=== PATIENT | male | born 1950 ===

== ENCOUNTER 2017-01-20 10:40 | Emergency (ER) | payer MEDICARE, OTHER ==
[~2017-01-20] VITALS: Ht 177.8 cm; Wt 90.9 kg
[2017-01-20 10:45] VITALS: BP 144/78; PULSE 50; RESP 18; O2SAT 98
--- NOTE | 2017-01-20 11:05 | ED.REPORT ---
HPI-Neurologic Deficit Date of Service Jan 20, 2017 ED Provider: Dangelo Matute MD The patient is a 66 year old male with history of hypertension, who presents to the emergency department complaining of episodes of vision changes that have been occurring occasionally over the last 9 months. He describes the episodes as "tunnel vision, like a kaleidoscope, and blurry." The left eye is more severe than the right. The episodes last at least 20 minutes at a time and spontaneously resolve. He does not have any other symptoms with these episodes. He was seen at the [facility] and sent to an eye doctor. He had an eye examination and was prescribed reading glasses. He has been wearing the glasses to read but is still having these episodes from time to time. He reports that he was told his eyes were "fine". He also reports a rash to his left chest that wraps around to the left side of his back. The rash is painful. He denies headache, unilateral weakness, slurred speech, confusion, chest pain, shortness of breath or abdominal pain. Upon further questioning it is apparent that the patient came here primarily for his rash and his eye issue is being worked up as an outpatient. He is a somewhat vague historian and is initially difficult to determine exactly why he came to the emergency room. Nursing Notes Stated Complaint: POSS TIA Chief Complaint: Neuro Symptoms/ Deficits Nursing Notes Reviewed: Yes Allergies: Coded Allergies: No Known Allergies (Unverified , 01/20/17) Scheduled Valacyclovir (Valacyclovir) 1,000 Mg Tablet 1,000 MG PO TID Scheduled PRN Hydrocodone-Acetaminophen 5-325 mg (Hydrocodone-Acetaminophen 5-325 mg) 1 Each Tablet 1 TABLET PO Q4H PRN PRN For Pain General Time Seen by Provider: 11:17 Chief Complaint Other (vision changes) Hx Obtained From: Patient Arrived By: Walk-in Sudden in Onset?: Yes Onset Occurred: More than a week ago... (>6 months) Symptom Duration: Intermittent Progression Since Onset: Intermittent Severity: Current: No pain currently Severity: Maximum: No pain Recent Healthcare: No recent hospitalization, Recent doctor visit Similar Sx Previous: Yes Past Medical History Past Medical History Hypertension Past Surgical History CABG Family History Noncontributory Smoking History Unknown if Ever Smoker Social History Other Social History: Good social support, Local resident Ambulatory Status Independent Review of Systems Eyes: Reports: Blurred bilateral, Visual loss bilateral Respiratory: Denies: Shortness of breath Cardiovascular: Denies: Chest pain GI: Denies: Abdominal pain Neurologic: Reports: Vision change, Denies: Confusion, Focal weakness, Headache, Numbness, Slurred speech Complete sys rev & neg: except as marked. Physical Exam Initial Vital Signs Vital Signs (First) Date Time Temp Pulse Resp B/P Pulse Ox O2 Delivery O2 Flow Rate FiO2 01/20/17 10:45 36.3 50 18 144/78 98 Room Air Initial VS: Reviewed ENT: Mucous membranes moist, Conjunctiva normal, No scleral icterus Neck: Supple, Non-tender, Full range of motion Abdomen / GI: Soft, Non-tender, No guarding, No rebound, No distention Lymphatic: No lymphadenopathy Extremities: Vascular intact, Neuro intact, No swelling, No tenderness Psychiatric: Mood/affect normal, Behavior normal, Normal thought content General/Constitutional: Awake, Alert Head / Eyes: Atraumatic, Normocephalic, PERRL, EOMI, No nystagmus, No periorbital redness, No periorbital swelling, No photophobia, No scleral icterus , Conjunctiva NL Respiratory / Chest: Breath sounds NL, Breath sounds = bilat, No respiratory distress, No rales, No rhonchi, No wheezing Well healed sternotomy scar Cardiovascular: Heart rate NL, Regular rhythm, Heart sounds NL, Peripheral circulation NL Neurologic: Oriented X3, Speech NL, No motor deficits, No sensory deficits, CN II - XII intact, Cerebellar NL, Memory NL Strength is 5/5 to all extremities. Speech is fluent. No facial droop. Skin: Warm, Dry Rash / Lesion Notes: There are erythematous patches about his left anterior chest wall wrapping around to his back in a dermatomal pattern with scattered fluid filled papules consistent with shingles. Interpretation & Diagnostics Lab Results Interpretation Result Diagram: 01/20/17 1115 01/20/17 1115 Test 01/20/17 11:15 White Blood Count 7.8th/mm3 (3.8-10.1) Red Blood Count 4.41mil/mm3 (4.40-5.80) Hemoglobin 15.1g/dL (13.8-17.2) Hematocrit 43.6% (41.0-50.0) Mean Corpuscular Volume 98.9fL (81-100) Mean Corpuscular Hemoglobin 34.2pg (27.0-35.0) Mean Corpuscular Hemoglobin Concent 34.6% (32.0-37.0) Red Cell Distribution Width 13.2% (12.3-15.4) Platelet Count 275bil/L (150-400) Neutrophils (%) (Auto) 58.5% (40-74) Lymphocytes (%) (Auto) 28.1% (14-46) Monocytes (%) (Auto) 9.7% (4-12) Eosinophils (%) (Auto) 2.8% (0-5) Basophils (%) (Auto) 0.8% (0-3) Sodium Level 139mEq/L (134-144) Potassium Level 4.1mEq/L (3.5-5.2) Chloride Level 104mEq/L (97-108) Carbon Dioxide Level 23mmol/L (18-29) Blood Urea Nitrogen 9mg/dL (8-27) Creatinine 0.95mg/dL (0.76-1.27) Estimat Glomerular Filtration Rate 84mL/min (>59) Glucose Level 132mg/dL (60-99) Calcium Level 9.2mg/dL (8.5-10.1) Magnesium Level 1.9mg/dL (1.6-2.6) Total Bilirubin 0.6mg/dL (0.0-1.2) Aspartate Amino Transf (AST/SGOT) 30U/L (0-50) Alanine Aminotransferase (ALT/SGPT) 24U/L (0-44) Alkaline Phosphatase 67U/L (25-160) Troponin T < 0.010ug/L (0.0-0.011) Total Protein 7.0g/dL (6.4-8.4) Albumin 3.7g/dL (3.4-5.0) ECG Interpretation ECG Interpretation: Ventricular bigeminy with a rate of [address] segment changes No T wave abnormalities No prior EKG available for comparison Time: 11:11 Interpreted by: ED physician X-Ray Chest Interpretation Chest Xray Interpretation: IMPRESSION: Negative chest. No acute cardiopulmonary process is evident. Dictated by: Bhavik Acuña M.D. on 01/20/2017 at 11:31 Interpretation / Wet Read by: Interpret - Radiologist Re-Eval/Medical Decision Med Decision/Clinical Course The patient is a 66 year old male with history of hypertension, who presents to the emergency department complaining of episodes of vision changes that have been occurring occasionally over the last 9 months. He describes the episodes as "tunnel vision, like a kaleidoscope, and blurry." The left eye is more severe than the right. The episodes last at least 20 minutes at a time and spontaneously resolve. He does not have any other symptoms with these episodes. He was seen at the [facility] and sent to an eye doctor. He had an eye examination and was prescribed reading glasses. He has been wearing the glasses to read but is still having these episodes from time to time. He reports that he was told his eyes were "fine". He also reports a rash to his left chest that wraps around to the left side of his back. The rash is painful. He denies headache, unilateral weakness, slurred speech, confusion, chest pain, shortness of breath or abdominal pain. Upon further questioning it is apparent that the patient came here primarily for his rash and his eye issue is being worked up as an outpatient. He is a somewhat vague historian and is initially difficult to determine exactly why he came to the emergency room. Here in the emergency department the patient is afebrile stable vital signs and examination as above. His visual acuity is normal bilaterally and is not complaining of any active vision issues at this time. Examination of his chest wall reveals rash that is consistent with shingles. There is no evidence of abscess or cellulitis. There is no evidence of ocular involvement in the region of shingles is completely isolated. Laboratory studies were obtained from triage is documented below: No leukocytosis, hct 43.6, CMP notable only for a glucose of 132, troponin 0.010. Chest x-ray obtained from triage demonstrated no acute cardiopulmonary process. In regards to the patient's shingles I will treat with a course of valacyclovir as well as [place] for pain. The cause of the patient's eye complaints are unclear. This is not a chronic issue for 9 months and is in no way suggestive of stroke or TIA. No evidence of ocular involvement of shingles. History is not suggestive of retinal tear/detachment. There is no evidence of foreign body. Ocular examination is essentially benign. Given the patient is oriented and evaluated by an digital content manager if feel that there is little I will add in determining the cause of this chronic issue. I have referred him back to ophthalmology for further evaluation. Prior to discharge follow-up and return precautions were reviewed in detail with the patient who verbalized understanding and agreement with the plan. The patient was discharged in stable condition. Source of Hx: Old records Re-Evaluation/Progress : Time of Eval: 12:40 Re-Evaluation/Progress Note: Rechecked the patient. Discussed plan for discharge. All questions were addressed. Counseled Regarding: Diagnosis, Lab results, Need for follow-up, When/why to return to ED Discharge & Departure Impression: Primary Impression: Tunnel vision Laterality: bilateral Qualified Code: H53.483 - Generalized contraction of visual field, bilateral Additional Impression: Shingles Herpes zoster complications: without complications Qualified Code: B02.9 - Zoster without complications Disposition: Home Discharge Condition All VS Reviewed: Yes Condition: Stable Patient Instructions: Shingles (ED) Additional Instructions: Thank you for entrusting us with your care today. I believe you will benefit from seeing an digital content manager to further investigate your chronic vision changes. We have given you a referral to an opthalmologist, please call today to [facility] for follow up. You do have evidence of shingles on your exam. You should take antiviral meds as prescribed. Return to the emergency department for recurrent vision changes, numbness, tingling, weakness, slurred speech, facial droop, headache, increased pain, shortness of breath, confusion, speech changes, or any other new or concerning symptoms. Narcotic Pain Medicine You have been prescribed a narcotic for pain relief. These drugs are usually combined with acetaminophen (Tylenol#3, Percocet, Darvocet, Anexsia, Vicodin) or aspirin (Empirin#3, Percodan, Synalogs-DC) for increased effect. Narcotics act on the central nervous system to reduce pain; they also impair mental alertness and physical abilities. We advise you not to drink alcohol, drive a car, or operate dangerous equipment when you are taking these drugs. You can lessen stomach irritation from your medicine by taking it with meals or a full glass of water. Common side effects of narcotics are: Nausea and vomiting , heartburn, constipation, dizziness, sleepiness, and mood changes. If you have bothersome side effects or symptoms of an allergic reaction (itching, hives, rash), stop taking your medicine and call your doctor or the emergency room right away. Please keep your narcotic medicine well out of the reach of children. Referrals: JOON NUÑEZ MD (PCP) Eileen Wolfe MD Attestation Portions of this note were transcribed by Emily Coker. I, Dr. Matute personally performed the history, physical exam and medical decision-making; I reviewed and confirmed the accuracy of the information in the transcribed note. Signed by: Gopi Metz, 01/20/2017 at 1300. copies to: JOON NUÑEZ MD, Beck O MD Jan 20, 2017 11:05 Emily Coker Jan 20, 2017 11:20
[2017-01-20 11:37] LABS: BASOPHILS % (AUTO) 0.8 % (0-3); EOSINOPHILS % (AUTO) 2.8 % (0-5); MONOCYTES % (AUTO) 9.7 % (4-12); Mean Corpuscular Hemoglobin 34.2 pg (27.0-35.0); Mean Corpuscular Volume 98.9 fL (81-100); NEUTROPHILS % (AUTO) 58.5 % (40-74); Platelet Count 275 bil/L (150-400)
[2017-01-20] MEDS ORDERED: HYDR-4003 PO (12:02)
[2017-01-20] MEDS ORDERED: VALA100026 PO (12:02)
[2017-01-20 12:15] LABS: Magnesium 1.9 mg/dL (1.6-2.6)
[2017-01-20 12:28] LABS: TROPONIN T < 0.010 ug/L (0.0-0.011)
--- NOTE | 2017-01-20 12:33 | DRSVH ---
PROCEDURE: X-RAY CHEST ONE VIEW, PORTABLE ([id number]) INDICATIONS: VISUAL ISSUES TECHNIQUE: One view of the chest was acquired. COMPARISON: None. FINDINGS: Surgical changes and devices: Postoperative changes are present related to prior median sternotomy. Lungs and pleura: No pleural effusions or pneumothorax. Lungs are clear. Mediastinum: Mediastinal contours appear normal. Heart size is normal. There may be aortic atheros clerosis. Bones and chest wall: No suspicious bony lesions. Overlying soft tissues appear unremarkable. IMPRESSION: Negative chest. No acute cardiopulmonary process is evident. Dictated by: Bhavik Acuña M.D. on 01/20/2017 at 11:31 Approved by: Bhavik Acuña M.D. on 01/20/2017 at 11:31
[2017-01-20 12:54] VITALS: BP 115/49; PULSE 57; RESP 16; O2SAT 96
== END 2017-01-20 12:53 | disposition home or self-care (01) ==
LOC: SED 10:40
DX: H53.483 Generalized contraction of visual field, bilateral (principal); B02.9 Zoster without complications; I10 Essential (primary) hypertension; Z95.1 Presence of aortocoronary bypass graft